=== PATIENT | female | born 1975 | race Caucasian/White ===

== ENCOUNTER → 2018-09-27 07:09 | Outpatient (CLI) | payer OTHER, SELFPAY ==
--- NOTE | 2018-09-27 07:23 | MRI_ITS ---
STUDY: MRI RIGHT ELBOW REASON FOR EXAM: Female, 43 years old. Lateral epicondylitis. TECHNIQUE: Standardized fat and water weighted pulse sequences were obtained in all 3 orthogonal planes. COMPARISON: None. FINDINGS: There is a small volume joint effusion of the radio-capitellum articulation. Normal radial collateral ligamentous complex. There is tendinosis with tendon thickening of the common extensor tendon. There is a small volume joint effusion of the ulnotrochlear articulation. Normal ulnar collateral ligamentous complex. Normal common flexor tendon. The cubital tunnel is normal, with a normal ulnar nerve. Normal biceps tendon and distal insertion. Normal lacertus fibrosis. Normal brachialis musculotendinous insertion. Normal triceps tendon and teno-osseous insertion. Normal olecranon process. The visualized distal humerus, proximal radius, and ulna are normal. The visualized muscles of the distal arm and proximal forearm are normal. The soft tissue structures are unremarkable. MRI/Upper Ext Joint Only(Routine) IMPRESSION: Mild common extensor tendon tendinosis (lateral epicondylitis) (. Small joint effusion. Electronically Signed: Olivier Dos Santos MD at 8:51 EDT Tel , Service support ,
== END ==
PROVIDERS: Referring Provider Emergency Medicine; Visit Provider Emergency Medicine
DX: M77.11 Lateral epicondylitis, right elbow (principal)
CPT/HCPCS: 73221